=== PATIENT | female | born 1945 | race Caucasian/White ===

== ENCOUNTER → 2018-06-16 16:17 | Outpatient (CLI) | payer MEDICARE, OTHER | END | disposition home or self-care (01) | LOC: D.MAMMO 14:45 | DX: Z12.31 Encounter for screening mammogram for malignant neoplasm of breast (principal) ==

== ENCOUNTER 2021-02-13 13:00 | Outpatient (CLI) | payer MEDICARE, OTHER | END 2021-02-13 23:59 | disposition home or self-care (01) | LOC: D.MAMMO 13:00 | PROVIDERS: ATTEND Family Medicine | DX: Z12.31 Encounter for screening mammogram for malignant neoplasm of breast (principal) ==